=== PATIENT | male | born 1930 | race Caucasian/White ===

== ENCOUNTER 2016-02-19 14:06 | Outpatient (RCR) | payer MEDICARE ==
[~2016-02-19] VITALS: Ht 167.6 cm; Wt 65.8 kg
[2016-02-19] MEDS ORDERED: TBO FILGRASTIM 480 MCG/0.8 ML SQ ONE (14:10)
[2016-02-22] MEDS: TBO FILGRASTIM 480 MCG/0.8 ML SQ SCH (13:04)
[2016-02-23] MEDS: TBO FILGRASTIM 480 MCG/0.8 ML SQ SCH (13:29)
[2016-02-23 13:31] VITALS: BP 108/69
== END 2016-05-19 | disposition home or self-care (01) ==
LOC: EUOP 02-22 13:01
PROVIDERS: ATTEND Internal Medicine Hematology & Oncology
DX: D61.818 Other pancytopenia (principal)
CPT/HCPCS: 96372; J1442